=== PATIENT | female | born 1990 | race Caucasian/White ===

== ENCOUNTER 2021-06-18 12:34 | Emergency (ER) | payer OTHER ==
--- OUTSIDE RECORDS SUMMARY | 2021-06-18 12:39 | XMS REPORT | Continuity of Care Document ---
:1990 Author Organization [facility] t Address [address] [place] [address] Care Team Providers Name Role Phone UNKNOWN Primary Care Physician Unavailable Anca PULIDO Attending Clinician Unavailable SUSANA Attending Clinician Unavailable Shravan BEARD Attending Clinician Unavailable NANI FRANKLIN Attending Clinician Unavailable Joleen STUART Attending Clinician Unavailable ANDREINA Attending Clinician Unavailable Maida DRIVER Attending Clinician Unavailable Kirill Bernard Attending Clinician Unavailable Kirill Bernard Attending Clinician Unavailable Attending Clinician Unavailable AURELIO BOBO M.D. Attending Clinician Unavailable Kirill Bernard Admitting Clinician Unavailable AURELIO BOBO M.D. Admitting Clinician Unavailable Payers Payer Name Policy Type Policy Number Effective Date Expiration Date Shravan sousa [facility] [id number] 2011 00:00:00 PLUS Problems This patient has no known problems. Allergies, Adverse Reactions, Alerts Allergy Allergy Status Severity Reaction(s) Onset Inactive Treating Comm ents Source Name Type Date Date Clinician No Known Drug Active [facility] NO KNOWN Drug Active [facility] Medications This patient has no known medications. Vital Signs Vital Name Observation Time Observation Value Comments Source Weight Dosing 2021-03-30 13:17:28 78.00 kg Weight Dosing 2021-03-30 13:16:25 78.00 kg Weight Dosing 2021-03-30 13:16:19 78.00 kg Weight Dosing 2021-03-30 13:16:11 78.00 kg Weight Dosing 2021-03-30 13:16:10 78.00 kg Weight Dosing 2021-03-30 13:15:48 78.00 kg Height/Length Measured 2021-03-30 13:15:45 144.8 cm Weight Dosing 2021-03-30 13:15:45 78.00 kg Height/Length Measured 2021-03-30 13:15:41 144.8 cm Weight Dosing 2021-03-30 13:15:41 78.00 kg Height/Length Measured 2021-03-30 13:15:36 145 cm Height/Length Measured 2021-03-30 13:15:30 145 cm Height/Length Measured 2021-03-30 13:15:26 145 cm Height/Length Measured 2020-01-15 18:09:41 Height/Length Measured 2020-01-15 16:40:52 Height/Length Measured 2020-01-15 14:00:05 Procedures This patient has no known procedures. Encounters Start End Encounter Admission Attending Care Care Encounter Source Date/Time Date/Time Type Type Clinicians Facility Department ID 2021-04-07 2021-04-07 Outpatient R [facility] [id number] Univers 13:00:00 13:00:00 CORNELIO [id number] [facility] 2021-04-07 2021-04-07 Outpatient R [facility] [id number] Univers 13:00:00 13:00:00 CORNELIO [facility] 2021-01-06 2021-01-06 Outpatient R [facility] [id number] Univers 10:00:00 10:00:00 [id number] [facility] 2021-01-06 2021-01-06 Outpatient R [facility] [id number] Univers 10:00:00 10:00:00 CORNELIO [facility] 2020-11-04 2020-11-04 Outpatient R [facility] [id number] Univers 11:00:00 11:00:00 [id number] [facility] 2020-11-04 2020-11-04 Outpatient R [facility] [id number] [facility]:00[facility]00 [facility]00:[address] [facility] 2020-10-22 2020-10-22 Outpatient R [facility] [id number] Univers 16:40:00 16:40:[id number] [facility] 2020-10-222020-10-22 Outpatient R SONG, [facility] [id number] Univers 16:40:00 16:40:00 DANGELO [facility] 2020-10-07 2020-10-07 Outpatient R ADUM, [facility] [id number] Univers 11:00:00 11:00:00 CORNELIO mitzy [facility] 2020-10-07 2020-10-07 Outpatient R [facility] [id number] Univers 10:00:00 10:00:00 [id number] ity [facility] 2020-09-25 2020-09-25 Outpatient R ADUM, [facility] [id number] Univers 10:30:00 10:30:[id number] [facility] [facility] 2020-09-24 2020-09-24 Outpatient R ADUM, [facility] [id number] Univers 15:00:00 15:00:00 CORNELIO [id number] [facility] 2020-09-24 2020-09-24 Outpatient R ADUM, [facility] [id number] Univers 00:00:00 00:00:00 CORNELIO [facility] 2020-09-16 2020-09-16 Outpatient R ADUM, [facility] [id number] Univers 00:00:00 00:00:[id number] [facility] [facility] 2020-09-16 2020-09-16 Outpatient R ADUM, [facility] [id number] Univers 00:00:00 00:00:00 CORNELIO [facility] 2020-09-04 2020-09-04 Outpatient R ADUM, [facility] [id number] Univers 14:30:00 14:30:00 CORNELIO [facility] 2020-05-19 2020-05-19 Emergency X KISHA, [facility] [id number] Univers 00:28:00 00:28:00 ZHENGSMITH [facility] 2020-05-17 2020-05-17 Emergency X Masoud FRANKLIN [facility] ERT [id number] Univers 17:19:00 17:19:00 ity [facility] 2020-05-16 2020-05-16 Emergency X NARCISO, [facility] E[facility] [id number] Univers 16:33:00 16:33:00 FAWN [facility] 2020-05-04 2020-05-04 Emergency X ANDREINA, [facility] ERT [id number] Univers 18:31:00 18:31:00 ALMAS [facility] 2020-05-02 2020-05-02 Emergency X [facility] [id number] Univers 16:08:00 16:08:00 [facility] 2020-04-25 2020-04-25 Emergency X Masoud FRANKLIN [facility] E[facility] [id number] Univers 11:25:00 11:25:00 [facility] 2020-04-04 2020-04-04 Emergency X [facility] ERT [id number] Univers 04:09:00 04:09:00 GWYN [facility] 2020-02-25 2020-02-25 Emergency X [facility] ERT [id number] Univers 18:15:00 18:15:00 GWYN [facility] 2020-01-15 2020-01-15 Inpatient 1 Alex Bernard [facility] [id number] 13:47:00 13:47:00 Alex Bernard [facility] 2020-01-15 2020-01-15 Inpatient 1 Alex Bernard [facility] [id number] 13:47:00 13:47:00 Alex Bernard -[id number] [facility] 2019-10-16 2019-10-16 Emergency X [facility] ERT [id number] Univers 12:10:00 12:10:00 GERSON [facility] Results Test Description Test Time Test Comments Results Result Comments Source RPR Qual 2020-01-16 09:03:37 Test Item Value Reference Range Interpretation Comme nts RPR Qual (test code = RPR Qual) Non-Reactive Non-Reactive Reactive Control (test code = Reactive Control) Reactive Weak Reactive Control (test code = Weak Reactive Weak Reactive Control) Non-Reactive Control (test code = Non-Reactive Non-Reactive Control) Lot # (test code = Lot #) [id number] Expiration Dt (test code = Expiration Dt) 04-12-2021 N [id number] 07:59:08 Test Item Value Reference Range Interpretation Comments Cholesterol Total 153 mg/dL N Low-risk l evel (test code = (desirable) - < 200 Cholesterol Total) mg/dlMode rate-risk level (borderli ne) - 200-239 mg/dlHigh-risk level - ?240 mg/dl Triglycerides (test 87 mg/dL N Normal - <150 code = Triglycerides) mg/dlB orderline high - 150-199 mg/dl High - 200-499 mg/dl Very high - ?500 mg/ dl HDL (test code = HDL) 44.40 mg/dL N Low-ri sk level (desirable) - ? 60 mg/dlHigh-risk level (undesirable) - <40 mg/dl LDL (test code = LDL) 91 mg/dL N The eq uation being used in this calculation is LDL = (Chol - HDL) - (Trig / 5) VLDL (test code = 17 mg/dL 5-40 The equati on being VLDL) used in this calculation is VLDL = Trig / 5 Chol/HDL (test code = 3.4 ratio <=5.0 Chol/HDL) LDL/HDL Ratio (test 3 N The equa tion being code = LDL/HDL Ratio) used i n this calculation is LDL/HDL Ratio=L DL Calc/HDL Chol [id number] 07:59:08 Test Item Value Reference Range Interpretation Comments TSH (test code = TSH) 0.627 mcIU/mL 0.550-4.780 Hgb [id number] 07:58:50 Test Item Value Reference Range Interpretation Comments Hemoglobin A1c (test code 5.1 % 4.0-5.8 Di abetic >=6.5 = Hemoglobin A1c) %Prediabet es 5.7-6.4 %Normal <5.7 % UA [id number] 17:29:48 Test Item Value Reference Range Interpretation Comments UA WBC (test code = UA WBC) 20-29 0-5 A UA RBC (test code = UA RBC) 0-5 0-5 UA Bacteria (test code = UA Moderate A Bacteria) UA Squam Epithelial (test code = UA 0-5 Squam Epithelial) UA [id number] 17:29:48 Test Item Value Reference Range Interpretation Comments UA WBC (test code = UA WBC) 20-29 0-5 A UA RBC (test code = UA RBC) 0-5 0-5 UA Bacteria (test code = UA Moderate A Bacteria) UA Squam Epithelial (test code = UA 0-5 Squam Epithelial) UA Mucous (test code = UA Mucous) Moderate A Urine [id number] 17:21:35 Test Item Value Reference Range Interpretation Comments Amphetamine Screen Ur Negative Negative The sp ecimen is (test code = presumptive pos itive Amphetamine Screen Ur) if th e analyte concentration i s equal to or greater t davison 1000 ng/ml.If confirmation of positive result is desired, please order Amphetamine Confirmation, U rine within 7 days. Barbiturate Screen Ur Negative Negative The sp ecimen is (test code = presumptive pos itive Barbiturate Screen Ur) if th e analyte concentration i s equal to or greater t davison 200 ng/ml.If confir mation of positive res ult is desired, please order Barbiturate Confirmation, U rine within 7 days. Benzodiazepines Ur Negative Negative The speci men is (test code = presumptive pos itive Benzodiazepines Ur) if the a nalyte concentration i s equal to or greater t davison 200 ng/ml.If confir mation of positive res ult is desired, please order Benzodiazephine Confirmation, U rine within 7 days. Cocaine Screen Ur (test Negative Negative The specimen is code = Cocaine Screen presum ptive positive Ur) if the analyte concentration i s equal to or greater t davison 300 ng/ml.If confir mation of positive res ult is desired, please order Cocaine Metabol ite Confirmation, U rine within 7 days. Opiate Screen Ur (test Negative Negative The s pecimen is code = Opiate Screen presump tive positive Ur) if the analyte concentration i s equal to or greater t davison 2000 ng/ml.If confirmation of positive result is desired, please order Opiate Confirm ation, Urine within 7 days. U PCP Scrn (test code = Negative Negative The specimen is U PCP Scrn) presumptive pos itive if the analyte concentration i s equal to or greater t davison 25 ng/ml.If confir mation of positive res ult is desired, please order Phencyclidine Confirmation, U rine within 7 days. Cannabinoid Screen Ur Negative Negative The sp ecimen is (test code = presumptive pos itive Cannabinoid Screen Ur) if th e analyte concentration i s equal to or greater t davison 50 ng/ml.If confir mation of positive res ult is desired, please order Cannabinoid (TH C) Confirmation, U rine within 7 days. U Methadone Scr (test Negative Negative The sp ecimen is code = U Methadone Scr) pres umptive positive if the analyte concentration i s equal to or greater t davison 300 ng/ml.If confir mation of positive res ult is desired, please order Methadone Confirmation, U rine within 7 days. U Propoxyphene (test Negative Negative The spe cimen is code = U Propoxyphene) presu mptive positive if the analyte concentration i s equal to or greater t davison 300 ng/ml.If confir mation of positive res ult is desired, please order Propoxyphene Confirmation wi thin 7 days. UA w Culture if [id number] 17:00:08 Test Item Value Reference Range Interpretation Comments UA Color (test code = UA Color) YELLO Yellow UA Appear (test code = UA Appear) CLEAR Clear UA pH (test code = UA pH) 8.5 N UA Spec Grav (test code = UA Spec 1.020 1.001-1.035 Grav) UA Glucose (test code = UA NEG Negative Glucose) UA Bili (test code = UA Bili) NEG Negative UA Ketones (test code = UA 15 mg/dL N Ketones) UA Blood (test code = UA Blood) TR Negative A UA Protein (test code = UA Trace mg/dL N Protein) UA Urobilinogen (test code = UA 1 mg/dL >0.2 A Urobilinogen) UA Nitrite (test code = UA NEG Negative Nitrite) UA Leuk Est (test code = UA Leuk SML Negative A Est) UA Micro Ind? (test code = UA Indicated Not Indicated A Micro Ind?) Novel Coronavirus SARS-CoV-2, [id number] 15:51:59 Test Item Value Reference Range Interpretation Comments SARS-CoV-2 PCR NEGATIVE Negative Positive resu lts are (test code = indicative of a ctive SARS-CoV-2 PCR) infection wi SARS-CoV-2; clinical correl ation with patient history and other diagnostic info rmation is necessary to de termine patient infecti on status.Presumpt evaristo positive result s -INTERPRET WITH CAUTION: Resul t may not reflect if nick ent is actually positi ve. Patient should be treat ed based on clinical suspic ions. Negative result s do not preclude SARS-C oV-2 infection and s hould not be used as the sole basis for treatment o r other patient managem ent decisions. Nega tive results must be combined with clinical observations, p atient history, and epidemiological information.The Xpert Xpress SARS-CoV -2 test is only for use un erma the Food and Drug Administration s Emergency Use Authorization." [id number] 15:11:36 Test Item Value Reference Range Interpretation Comments Sodium Level (test code = Sodium 140.0 mmol/L 136.0-145.0 Level) Potassium Level (test code = 4.20 mmol/L 3.50-5.10 Potassium Level) Chloride Level (test code = 107.0 mmol/L 98.0-107.0 Chloride Level) CO2 (test code = CO2) 25 mmol/L 20-31 Anion Gap (test code = Anion 8.3 mmol/L 5.0-15.0 Gap) BUN (test code = BUN) 9 mg/dL 9-23 Creatinine Level (test code = 0.70 mg/dL 0.55-1.02 Creatinine Level) BUN/Creat Ratio (test code = 12.9 ratio 10.0-20.0 BUN/Creat Ratio) Glucose Level (test code = 128 mg/dL 74-106 H Glucose Level) Calcium Level (test code = 9.3 mg/dL 8.3-10.6 Calcium Level) Alk Phos (test code = Alk Phos) 120 U/L 46-116 H Bilirubin Total (test code = 0.2 mg/dL 0.2-1.1 Bilirubin Total) Albumin Level (test code = 4.5 g/dL 3.2-4.8 Albumin Level) Protein Total (test code = 6.4 g/dL 5.7-8.2 Protein Total) ALT (test code = ALT) 48 U/L 10-49 AST (test code = AST) 20 U/L <=34 Globulin (test code = Globulin) 1.9 g/dL 2.3-3.5 L A/G Ratio (test code = A/G 2.4 g/dL 0.8-2.0 H Ratio) Hemolysis (test code = 0 g/dL 1-2 H Hemolysis) Icterus (test code = Icterus) 0 g/dL 1-2 H Lipemia (test code = Lipemia) 0 g/dL 1-2 H [id number] 15:11:36 Test Item Value Reference Range Interpretation Comments Ethanol Level <3.0 mg/dL N The pharmacolo gical (test code = response to blo od alcohol Ethanol Level) levels may va ry from individual to i ndividual. The fatal chivo ntration has been report ed to be >400 mg/dl. [id number] 15:11:36 Test Item Value Reference Range Interpretation Comments Sodium Level (test 140.0 mmol/L 136.0-145.0 code = Sodium Level) Potassium Level 4.20 mmol/L 3.50-5.10 (test code = Potassium Level) Chloride Level (test 107.0 mmol/L 98.0-107.0 code = Chloride Level) CO2 (test code = 25 mmol/L 20-31 CO2) Anion Gap (test code 8.3 mmol/L 5.0-15.0 = Anion Gap) BUN (test code = 9 mg/dL 9-23 BUN) Creatinine Level 0.70 mg/dL 0.55-1.02 (test code = Creatinine Level) BUN/Creat Ratio 12.9 ratio 10.0-20.0 (test code = BUN/Creat Ratio) Glucose Level (test 128 mg/dL 74-106 H code = Glucose Level) Calcium Level (test 9.3 mg/dL 8.3-10.6 code = Calcium Level) Alk Phos (test code 120 U/L 46-116 H = Alk Phos) Bilirubin Total 0.2 mg/dL 0.2-1.1 (test code = Bilirubin Total) Albumin Level (test 4.5 g/dL 3.2-4.8 code = Albumin Level) Protein Total (test 6.4 g/dL 5.7-8.2 code = Protein Total) ALT (test code = 48 U/L 10-49 ALT) AST (test code = 20 U/L <=34 AST) Globulin (test code 1.9 g/dL 2.3-3.5 L = Globulin) A/G Ratio (test code 2.4 g/dL 0.8-2.0 H = A/G Ratio) eGFR AA (test code = >60 >=60 eGFR (e stimated eGFR AA) mL/min/1.73 m2 Glomerular Filtration Rate ) is an estimated va lue, calculated from the patient's serum creatinine usin g the MDRD equation. It is NOT the patient 's actual GFR. The eGFR provides a more clinically usef ul measure of kidn ey disease than se rum creatinine alone.This calculation aiden es sex and race in to account, if the information is provided. If th e race is not provided, and t he patient is -Francesca n, multiply by 1.2 12. If sex is not provided, and t he patient is fema le, multiply by 0.7 42. Results for pat ients <18 years of ag e have not been validated by th e MDRD study and should be interpreted wit h caution. eGFR R esult Interpretation: eGFR > or = 60 is in the Normal RangeeGF R < 60 may mean kid lorie diseaseeGFR < 1 5 may mean kidney failure Rang es recommended by the National Kidney Foundation, http://nkdep.ni h.gov Hemolysis (test code 0 g/dL 1-2 H = Hemolysis) Icterus (test code = 0 g/dL 1-2 H Icterus) Lipemia (test code = 0 g/dL 1-2 H Lipemia) HCG Ql [id number] 15:11:36 Test Item Value Reference Range Interpretation Comments HCG, Serum Qual (test code = HCG, Negative Negative Serum Qual) [id number] 15:11:36 Test Item Value Reference Range Interpretation Comments Sodium Level (test 140.0 mmol/L 136.0-145.0 code = Sodium Level) Potassium Level 4.20 mmol/L 3.50-5.10 (test code = Potassium Level) Chloride Level (test 107.0 mmol/L 98.0-107.0 code = Chloride Level) CO2 (test code = 25 mmol/L 20-31 CO2) Anion Gap (test code 8.3 mmol/L 5.0-15.0 = Anion Gap) BUN (test code = 9 mg/dL 9-23 BUN) Creatinine Level 0.70 mg/dL 0.55-1.02 (test code = Creatinine Level) BUN/Creat Ratio 12.9 ratio 10.0-20.0 (test code = BUN/Creat Ratio) Glucose Level (test 128 mg/dL 74-106 H code = Glucose Level) Calcium Level (test 9.3 mg/dL 8.3-10.6 code = Calcium Level) Alk Phos (test code 120 U/L 46-116 H = Alk Phos) Bilirubin Total 0.2 mg/dL 0.2-1.1 (test code = Bilirubin Total) Albumin Level (test 4.5 g/dL 3.2-4.8 code = Albumin Level) Protein Total (test 6.4 g/dL 5.7-8.2 code = Protein Total) ALT (test code = 48 U/L 10-49 ALT) AST (test code = 20 U/L <=34 AST) Globulin (test code 1.9 g/dL 2.3-3.5 L = Globulin) A/G Ratio (test code 2.4 g/dL 0.8-2.0 H = A/G Ratio) eGFR AA (test code = >60 >=60 eGFR (e stimated eGFR AA) mL/min/1.73 m2 Glomerular Filtration Rate ) is an estimated va lue, calculated from the patient's serum creatinine usin g the MDRD equation. It is NOT the patient 's actual GFR. The eGFR provides a more clinically usef ul measure of kidn ey disease than se rum creatinine alone.This calculation aiden es sex and race in to account, if the information is provided. If th e race is not provided, and t he patient is -Francesca n, multiply by 1.2 12. If sex is not provided, and t he patient is fema le, multiply by 0.7 42. Results for pat ients <18 years of ag e have not been validated by th e MDRD study and should be interpreted wit h caution. eGFR R esult Interpretation: eGFR > or = 60 is in the Normal RangeeGF R < 60 may mean kid lorie diseaseeGFR < 1 5 may mean kidney failure Rang es recommended by the National Kidney Foundation, http://nkdep.ni h.gov eGFR Non-AA (test >60.00 >=60.00 eGFR (tarun mated code = eGFR Non-AA) mL/min/1.73 m2 Glomer ular Filtration Rate ) is an estimated va lue, calculated from the patient's serum creatinine usin g the MDRD equation. It is NOT the patient 's actual GFR. The eGFR provides a more clinically usef ul measure of kidn ey disease than se rum creatinine alone.This calculation aiden es sex and race in to account, if the information is provided. If th e race is not provided, and t he patient is -Francesca n, multiply by 1.2 12. If sex is not provided, and t he patient is fema le, multiply by 0.7 42. Results for pat ients <18 years of ag e have not been validated by th e MDRD study and should be interpreted wit h caution. eGFR R esult Interpretation: eGFR > or = 60 is in the Normal RangeeGF R < 60 may mean kid lorie diseaseeGFR < 1 5 may mean kidney failure Rang es recommended by the National Kidney Foundation, http://nkdep.ni h.gov Hemolysis (test code 0 g/dL 1-2 H = Hemolysis) Icterus (test code = 0 g/dL 1-2 H Icterus) Lipemia (test code = 0 g/dL 1-2 H Lipemia) [id number] 14:58:46 Test Item Value Reference Range Interpretation Comments WBC (test code = WBC) 8.2 x10 4.4-10.5 RBC (test code = RBC) 4.53 x10 3.75-5.20 Hgb (test code = Hgb) 12.3 g/dL 12.2-14.8 Hct (test code = Hct) 40.1 % 36.5-44.4 MCV (test code = MCV) 88.50 fL 80.00-100.00 MCHC (test code = 30.70 g/dL 32.00-37.50 L MCHC) MCH (test code = MCH) 27.2 pg 27.0-32.5 RDW CV (test code = 14.9 % 11.5-14.5 H RDW CV) Platelets (test code = 344.0 x10 140.0-440.0 Platelets) MPV (test code = MPV) 9.3 fL N Slide Review (test Auto Auto Result cr eated by code = Slide Review) GL_[id number] SLIDE_REV_AUTO nRBC (test code = 0 N nRBC) NRBC Abs (test code = 0.00 x10 N NRBC Abs) Auto [id number] 14:58:46 Test Item Value Reference Range Interpretation Comments Neutro Auto (test code = Neutro 55.7 % 36.0-70.0 Auto) Lymph Auto (test code = Lymph Auto) 38.5 % 12.0-44.0 [place] Auto (test code = [place] Auto) 4.7 % 0.0-11.0 Eos, Auto (test code = Eos, Auto) 0.4 % 0.0-7.0 Basophil Auto (test code = Basophil 0.5 % 0.0-2.0 Auto) Neutro Absolute (test code = Neutro 4.6 x10 1.6-7.4 Absolute) Lymph Absolute (test code = Lymph 3.17 x10 .50-4.60 Absolute) [place] Absolute (test code = [place] .39 x10 .00-1.20 Absolute) Eos Absolute (test code = Eos 0.03 x10 0.00-0.74 Absolute) Baso Absolute (test code = Baso 0.04 x10 0.00-0.21 Absolute) IG [id number] 14:58:46 Test Item Value Reference Range Interpretation Comments IG (test code = IG) 0.2 % 0.0-5.0 IG Abs (test code = IG Abs) 0 x10 N RPR, [id number] 04:44:00 Test Item Value Reference Range Interpretation Comments RPR (test code = RPR) Non-Reactive Non-Reactive N Urinalysis [id number] 14:36:00 Test Item Value Reference Range Interpretation Comments Color (test code = COLOR) Yellow Yellow,Straw,Pl N yellow Clarity (test code = Clear Clear N CLAR) Specific [place] (test 1.012 1.001-1.035 N code = SPGR) pH (test code = PH) 8.0 5.0-9.0 N Ketone (test code = KET) Negative mg/dL Negative N Glucose (test code = Negative mg/dL Negative N GLUCUR) Protein (test code = Negative mg/dL Negative N PROT) Bilirubin (test code = Negative mg/dL Negative N BILI) Occult Blood (test code = Negative Negative N UDOB) Urobilinogen (test code = 0.2 mg/dL 0.2-1.0 N UROB) Nitrite (test code = NIT) Negative Negative N Leuk Esterase (test code Moderate Negative A = LEUK) Micros Exam (test code = Indicated MEXAM) Epithelial Cells (test 6-9 /LPF 0-30 A code = EPI) WBC, Urine (test code = 2-5 /HPF 0-5 A UWBC) RBC, Urine (test code = 0-3 /HPF 0-5 A URBC) Bacteria (test code = Few /HPF BACT) [id number] 13:50:00 Test Item Value Reference Range Interpretation Comments Amphetamine (test code Negative Negative N For d iagnostic purposes = AMPH) only, positive results should always b e assessedin conjunctionwith the patient's medic al history,clinica l examination and otherfindings.T o fulfill legal requirements, a more specific altern ate chemical method must be used inorder to obtain a Confirmed fabio lytical result. GC/MS i s the preferred confi rmatory method. Barbiturates (test Negative Negative N code = EDEL) Benzodiazepine (test Negative Negative N code = LISBETH) Cocaine (test code = Negative Negative N COCA) Methadone (test code = Negative Negative N MTHD) Opiates (test code = Negative Negative N OPIA) PCP (test code = PCP) Negative Negative N Propoxyphene (test Negative Negative N code = PROPOX) THC (test code = THC) Negative Negative N BHCG, Urine, [id number] 12:04:00 Test Item Value Reference Range Interpretation Comments Preg Qual [Ur] (test code = HUHCG) Negative Negative N Alcohol/Ethanol, [id number] 12:04:00 Test Item Value Reference Range Interpretation Comments Alcohol, Ethyl <0.01 g/dL 0.00-0.01 N Intoxicated 0.080 (test code = ETOH) g/dL or m ore Comprehensive Metabolic [id number] 12:04:00 Test Item Value Reference Range Interpretation Comments Sodium (test code = 138 mmol/L 135-145 N NA) Potassium (test 4.2 mmol/L 3.5-5.1 N code = K) Chloride (test code 100 mmol/L 98-105 N = CL) Carbon Dioxide 27 mmol/L 22-29 N (test code = CO2) Glucose (test code 115 mg/dL 70-115 N = GLU) Blood Urea Nitrogen 7 mg/dL 6-20 N (test code = BUN) Creatinine (test 0.5 mg/dL 0.5-0.9 N code = CREAT) Calcium (test code 9.3 mg/dL 8.3-10.5 N = CA) Prot Total (test 7.1 g/dL 6.4-8.3 N code = TP) Albumin (test code 4.1 g/dL 3.5-5.2 N = ALB) A/G Ratio (test 1.4 Ratio code = AGRATIO) Globulin (test code 3.0 2.9-3.1 N = GLOB) Bili Total (test <0.1 mg/dL 0.1-0.9 L code = TBIL) Alk Phos (test code 98 U/L 35-104 N = APHOS) AST (test code = 13 U/L 1-32 N AST) ALT (test code = 13 U/L 1-33 N ALT) BUN/Creatinine 14.0 Ratio (test code = BCRATIO) Anion Gap (test 11 mmol/L 7-16 N code = AGAP) Estimated GFR (test >60 eGFR (es timated code = GFR) mL/min/1.73m2 Glomerular Scott tration Rate) is an est imated value,calculate d from the patient's s margaret creatinine usin g the MDRD equation.I t is NOT the patient 's actual GFR. The eGFR provides a more clinicallyusefu l measure of kidn ey disease than se rum creatinine alone.This calculation aiden es sex and race into account, if the informationis provided. If th e race is not provided , and the patient isAfrican-Ameri can, multiply by 1.2 12. If sex is not prov ided, and thepatient is female, multipl y by 0.742. Results for patients <18 ye ars ofage have not been validated by th e MDRD study and marco d be interpretedwith caution.eGFR Re sult Interpretation: eGFR > or = 60 is in t he Normal RangeeGF R < 60 may mean kidney diseaseeGFR < 1 5 may mean kidney failureRange s recommended by the National Kidney Foundation,http ://nkd ep.nih.gov CBC with [id number] 11:37:00 Test Item Value Reference Range Interpretation Comments WBC (test code = WBC) 7.6 K/cumm 4.4-10.5 N RBC (test code = RBC) 4.43 M/cumm 3.75-5.20 N Hemoglobin (test code = HGB) 12.4 gm/dL 12.2-14.8 N Hematocrit (test code = HCT) 36.7 % 36.5-44.4 N MCV (test code = MCV) 83.0 fL 80-100 N MCH (test code = MCH) 28.1 pg 27.0-32.5 N MCHC (test code = MCHC) 33.8 g/dL 32.0-37.5 N RDW (test code = RDW) 13.2 % 11.5-14.5 N Platelet Count (test code = 275 K/cumm 140-440 N PLTCT) MPV (test code = MPV) 9.5 fL Diff Method (test code = DIFFM) Auto Neutrophil (test code = NEUT) 65.8 % 36-70 N Lymphocyte (test code = LYMPH) 30.0 % 12-44 N Monocyte (test code = MONO) 3.1 % 0-11 N Eosinophil (test code = EOS) 0.7 % 0-7 N Basophil (test code = BASO) 0.3 % 0-2 N Neutro Abs (test code = ANEUT) 5.0 K/cumm 1.6-7.4 N Lymph Abs (test code = ALYMPH) 2.3 K/cumm 0.5-4.6 N [place] Abs (test code = AMONO) 0.2 K/cumm 0.0-1.2 N Eos Abs (test code = AEOS) 0.05 K/cumm 0.00-0.74 N Baso Abs (test code = ABASO) 0.0 K/cumm 0.00-0.21 N
[2021-06-18 14:31] LABS: SARS-COV-2 RT PCR NEGATIVE (NEGATIVE)
--- NOTE | 2021-06-18 14:38 | EDPHYS ---
Physician Documentation [facility] Name: Bonnie Hilton Age: 31 yrs Sex: Female : 1990 Arrival Date: 06/18/2021 Time: 12:40 Bed Treatment Private MD: ED Physician Vj Paniagua HPI: 06/18 14:36 This 31 yrs old Female presents to ER via Ambulatory with complaints of Sinus kb Congestion, Sore Throat. 14:36 The patient or guardian reports cough, that is intermittent, described as mild. Onset: kb The symptoms/episode began/occurred 5 day(s) ago. Severity of symptoms: At their worst the symptoms were mild, moderate, in the emergency department the symptoms are unchanged. Modifying factors: The symptoms are alleviated by nothing, the symptoms are aggravated by nothing. Associated signs and symptoms: Pertinent positives: rhinorrhea, sore throat, Pertinent negatives: chest pain, diarrhea, ear ache, fever, nausea, vomiting. The patient has not experienced similar symptoms in the past. The patient has not recently seen a physician. Pt reports cough, sore throat and runny nose for 5 days. Denies fever/chills. Historical: - Allergies: 12:54 No Known Allergies; ab2 - PMHx: 12:54 None; ab2 - PSHx: 12:54 None; ab2 - Immunization history:: Adult Immunizations up to date. - Social history:: Smoking status: Patient reports the use of cigarette tobacco products, smokes one pack cigarettes per day. ROS: 14:35 Constitutional: Negative for fever, chills, and weight loss. kb 14:35 ENT: Positive for rhinorrhea, sinus pain. 14:35 Respiratory: Positive for cough. 14:35 All other systems are negative. Exam: 14:35 Constitutional: This is a well developed, well nourished patient who is awake, alert, kb and in no acute distress. Head/Face: Normocephalic, atraumatic. ENT: Moist Mucous membranes Cardiovascular: Regular rate and rhythm with a normal S1 and S2. No gallops, murmurs, or rubs. No pulse deficits. Respiratory: Respirations even and unlabored. No increased work of breathing. Talking in full sentences Abdomen/GI: Soft, non-tender. No distention Skin: Warm, dry with normal turgor. Normal color. MS/ Extremity: Pulses equal, no cyanosis. Neurovascular intact. Full, normal range of motion. Neuro: Awake and alert, GCS 15, oriented to person, place, time, and situation. Moves all extremities. Normal gait. Psych: Awake, alert, with orientation to person, place and time. Behavior, mood, and affect are within normal limits. Vital Signs: 12:53 BP 111 / 81; Pulse 116; Resp 17; Temp 99.1; Pulse Ox 96% on R/A; Weight 90.72 kg; ab2 Height 4 ft. 9 in. (144.78 cm); Pain 0/10; 12:53 Body Mass Index 43.28 (90.72 kg, 144.78 cm) ab2 MDM: 12:57 Patient medically screened. kb 14:34 Data reviewed: vital signs, nurses notes. Data interpreted: Pulse oximetry: on room air kb is 96 %. Interpretation: normal. Counseling: I had a detailed discussion with the patient and/or guardian regarding: the historical points, exam findings, and any diagnostic results supporting the discharge/admit diagnosis, lab results, the need for outpatient follow up, a family practitioner, to return to the emergency department if symptoms worsen or persist or if there are any questions or concerns that arise at home. 06/18 12:58 Order name: COVID-19/FLU A+B (Document "Date of Onset" if Symptomatic); Complete Time: ab2 14:34 06/18 12:58 Order name: Strep; Complete Time: 13:23 ab2 06/18 13:21 Order name: Throat Culture EDMS Administered Medications: No medications were administered Disposition Summary: 06/18/21 14:37 Discharge Ordered Location: Home kb Condition: Stable kb Diagnosis - Acute upper respiratory infection, unspecified kb Followup: kb - With: Emergency Department - When: As needed - Reason: Worsening of condition Followup: kb - With: Private Physician - When: 2 - 3 days - Reason: Recheck today's complaints, Continuance of care, Re-evaluation by your physician Discharge Instructions: - Discharge Summary Sheet kb - Upper Respiratory Infection, Adult, [id number] kb - Viral Respiratory Infection, [id number]-Oa-Duhl kb Forms: - Medication Reconciliation Form kb - Thank You Letter kb - Antibiotic Education kb - Prescription Opioid Use kb Addendum: 06/24/2021 18:48 Co-signature as Attending Physician, Vj Paniagua MD I agree with the assessment and c merlos plan of care. Signatures: Dispatcher [employer] Camila Parsons, TOOL GRINDER OPERATOR-C TOOL GRINDER OPERATOR-Vj Daniels MD MD cha Bleininger, Alexis ab2
--- NOTE | 2021-06-18 14:38 | ER ---
Nurse's Notes [facility] Name: Bonnie Hilton Age: 31 yrs Sex: Female : 1990 Arrival Date: 06/18/2021 Time: 12:40 Bed Treatment Private MD: Diagnosis: Acute upper respiratory infection, unspecified Presentation: 06/18 12:53 Chief complaint: Patient states: "I have a head cold. I have sore throat, runny nose, ab2 cough that started 5 days ago." Pt denies fever/ chills. Pt denies n/v/d. Coronavirus screen: Vaccine status: Patient reports receiving the 2nd dose of the covid vaccine. Client denies travel out of the [place] in the last 14 days. chills, cough unrelated to allergies, runny nose, sore throat, Client presents with at least one sign or symptom that may indicate coronavirus-19. Standard/surgical mask placed on the client. Provider contacted for isolation considerations. Ebola Screen: Patient negative for fever greater than or equal to 101.5 degrees Fahrenheit, and additional compatible Ebola Virus Disease symptoms Patient denies exposure to infectious person. Patient denies travel to an Ebola-affected area in the 21 days before illness onset. No symptoms or risks identified at this time. Initial Sepsis Screen: Does the patient meet any 2 criteria? HR > 90 bpm. No. Patient's initial sepsis screen is negative. Does the patient have a suspected source of infection? No. Patient's initial sepsis screen is negative. Risk Assessment: Do you want to hurt yourself or someone else? Patient reports no desire to harm self or others. Onset of symptoms is unknown. 12:53 Method Of Arrival: Ambulatory ab2 12:53 Acuity: ADELE 4 ab2 Triage Assessment: 12:55 General: Appears in no apparent distress. comfortable, Behavior is calm, cooperative, ab2 appropriate for age. Pain: Denies pain. EENT: Reports pain when swallowing. Neuro: Level of Consciousness is awake, alert, obeys commands, Oriented to person, place, time, situation, Appropriate for age Forestry Crew Chief are equal bilaterally Moves all extremities. Gait is steady, Speech is normal, Facial symmetry appears normal. Cardiovascular: Denies chest pain, shortness of breath, Patient's skin is warm and dry. Respiratory: Airway is patent Respiratory effort is even, unlabored, Respiratory pattern is regular, symmetrical. GI: No deficits noted. No signs and/or symptoms were reported involving the gastrointestinal system. Historical: - Allergies: 12:54 No Known Allergies; ab2 - PMHx: 12:54 None; ab2 - PSHx: 12:54 None; ab2 - Immunization history:: Adult Immunizations up to date. - Social history:: Smoking status: Patient reports the use of cigarette tobacco products, smokes one pack cigarettes per day. Screenin:24 Abuse screen: Denies threats or abuse. Denies injuries from another. Nutritional ab2 screening: No deficits noted. Tuberculosis screening: No symptoms or risk factors identified. Fall Risk None identified. Assessment: 14:23 General: Appears in no apparent distress. comfortable, Behavior is calm, cooperative, ab2 appropriate for age. Pain: Denies pain. Neuro: Level of Consciousness is awake, alert, obeys commands, Oriented to person, place, time, situation, Appropriate for age Forestry Crew Chief are equal bilaterally Moves all extremities. Gait is steady, Speech is normal, Facial symmetry appears normal. Cardiovascular: No deficits noted. Denies chest pain, shortness of breath, Patient's skin is warm and dry. Respiratory: Airway is patent Respiratory effort is even, unlabored, Respiratory pattern is regular, symmetrical, Breath sounds are clear bilaterally. GI: No deficits noted. No signs and/or symptoms were reported involving the gastrointestinal system. : No deficits noted. No signs and/or symptoms were reported regarding the genitourinary system. EENT: Throat is reddened Reports pain when swallowing. Derm: No deficits noted. Skin is intact, is healthy with good turgor, Skin is pink, warm \\T\\ dry. Vital Signs: 12:53 BP 111 / 81; Pulse 116; Resp 17; Temp 99.1; Pulse Ox 96% on R/A; Weight 90.72 kg; ab2 Height 4 ft. 9 in. (144.78 cm); Pain 0/10; 12:53 Body Mass Index 43.28 (90.72 kg, 144.78 cm) ab2 ED Course: 12:40 Patient arrived in ED. mr 12:42 Camila Sinclair FNP-C [facility] kb 12:42 Vj Paniagua MD is Attending Physician. kb 12:54 Triage completed. ab2 12:55 Arm band placed on left wrist. ab2 14:24 Patient has correct armband on for positive identification. Bed in low position. Call ab2 light in reach. Side rails up X2. 14:24 No provider procedures requiring assistance completed. ab2 15:01 Enriqueta Pollock, RN is Primary Nurse. ss 15:01 Patient did not have IV access during this emergency room visit. ss Administered Medications: No medications were administered Outcome: 14:37 Discharge ordered by MD. kb 15:01 Discharged to home ambulatory. ss 15:01 Condition: good 15:01 Discharge instructions given to patient, family, Instructed on discharge instructions, follow up and referral plans. Demonstrated understanding of instructions, follow-up care. 15:02 Patient left the ED. Signatures: Camila Sinclair, DEVELOPMENTAL ELECTRONICS ASSEMBLER-C DEVELOPMENTAL ELECTRONICS ASSEMBLER-Carmen Valles mr Enriqueta Pollock, RN RN Kehinde Guzman ab2
[2021-06-18 17:13] VITALS: BP 111/81; TEMP 99.1; O2SAT 96
== END 2021-06-18 15:02 | disposition home or self-care (01) ==
LOC: ER 12:34
DX: J06.9 Acute upper respiratory infection, unspecified (principal); Z20.822 Contact with and (suspected) exposure to COVID-19; F17.210 Nicotine dependence, cigarettes, uncomplicated
CPT/HCPCS: 87070; 87081; 0240U; 99281

== ENCOUNTER 2021-08-12 22:16 | Emergency (ER) | payer OTHER ==
--- OUTSIDE RECORDS SUMMARY | 2021-08-12 22:19 | XMS REPORT | Continuity of Care Document ---
:1990 Author Organization [facility] t Address [address] [place] [address] Care Team Providers Name Role Phone UNKNOWN Primary Care Physician Unavailable Anca PULIDO Attending Clinician Unavailable SUSANA Attending Clinician Unavailable Shravan BEARD Attending Clinician Unavailable NANI FRANKLIN Attending Clinician Unavailable Joleen STUART Attending Clinician Unavailable ANDREINA Attending Clinician Unavailable Maida DRIVER Attending Clinician Unavailable Kirill Bernard Attending Clinician Unavailable Kirill Bernard Attending Clinician Unavailable Ann Marie TRAORE Attending Clinician Unavailable Attending Clinician Unavailable AURELIO BOBO M.D. Attending Clinician Unavailable Kirill Bernard Admitting Clinician Unavailable AURELIO BOBO M.D. Admitting Clinician Unavailable Payers Payer Name Policy Type Policy Number Effective Date Expiration Date S merry [facility] [id number] 2011 00:00:00 PLUS Problems This patient has no known problems. Allergies, Adverse Reactions, Alerts Allergy Allergy Status Severity Reaction(s) Onset Inactive Treating Comm ents Source Name Type Date Date Clinician No Known Drug Active [facility] NO KNOWN Drug Active [facility] [...] Facility Department ID 2021-04-07 2021-04-07 Outpatient R [facility] [id number] Univers 13:00:00 13:00:00 [facility] [id number] 2021-04-07 Outpatient R [facility] [id number] Univers 13:00:00 13:00:00 CORNELIO [facility] 2021-01-06 2021-01-06 Outpatient [facility] [id number] [facility] 10:00:00 10:00:00 [id number] ity [facility] 2021-01-06 2021-01-06 Outpatient R [facility] [id number] Univers 10:00:00 10:00:00 CORNELIO [facility] 2020-11-04 2020-11-04 Outpatient R [facility] [id number] [facility] 11:00:00 11:00:00 [id number] [facility]-11-[facility] 2020-11-04 Outpatient R [facility] [id number] [facility] 11:00[facility]-10[facility] 2020-10-22 Outpatient R [facility] [id number] [facility] 16:40:00 16:40:00 [id number] ity [facility] 2020-10-22 2020-10-22 Outpatient R SONG, [facility] [id number] [facility] 16:40:00 16:40:00 DANGELO ity [facility] 2020-10-07 2020-10-07 Outpatient R ADUM, [facility] [id number] [facility] 11:00:00 11:00:00 CORNELIO itmitzy [facility] 2020-10-07 2020-10-07 Outpatient R [facility] [id number] [facility] 10:00:00 10:00:00 [id number] ity [facility] 2020-09-25 2020-09-25 Outpatient R ADUM, [facility] [id number] [facility] 10:30:00 10:30:00 CORNELIO [id number] ity [facility] 2020-09-24 2020-09-24 Outpatient R ADUM, [facility] [id number] [facility] 15:00:00 15:00:00 [facility] [id number] [facility] 2020-09-[facility] 2020-09-24 Outpatient R ADUM, [facility] [id number] [facility] 00:00:00 00:00:00 [facility] 2020-09-16 Outpatient R ADUM, [facility] [id number] [facility] 00:00:00 00:00:00 [facility] [id number] [facility] 2020-09-16 2020-09-16 Outpatient R ADUM, [facility] [id number] Univers 00:00:00 00:00:00 CORNELIO itmitzy [facility] 2020-09-04 2020-09-04 Outpatient R ADUM, [facility] [id number] Univers 14:30:00 14:30:00 CORNELIO [facility] 2020-05-19 2020-05-19 Emergency X KISHA, [facility] ERT [id number] Univers 00:28:00 00:28:00 Z[facility]ELISSA [facility] 2020-05-17 2020-05-17 Emergency X Masoud FRANKLIN [facility] ERT [id number] Univers 17:19:00 17:19:00 [facility] 2020-05-16 2020-05-16 Emergency X NARCISO [facility] ERT [id number] Univers 16:33:00 16:33:00 FAWN [facility] 2020-05-04 2020-05-04 Emergency X ANDREINA, [facility] ERT [id number] Univers 18:31:00 18:31:00 ALMAS [facility] 2020-05-02 2020-05-02 Emergency X [facility] ERT [id number] Univers 16:08:00 16:08:00 [facility] 2020-04-25 2020-04-25 Emergency X Masoud FRANKLIN [facility] ERT [id number] Univers 11:25:00 11:25:00 [facility] 2020-04-04 2020-04-04 [facility] [id number] Univers 04:09:00 04:09:00 GWYN [facility] 2020-02-25 2020-02-25 [facility] [id number] Univers 18:15:00 18:15:00 GWYN [facility] 2020-01-15 2020-01-15 In[address] [facility] PSY [id number] 13:47:00 13:47:00 Alex Bernard [facility] 2020-01-15 2020-01-15 Inpatient [address] [facility] PS[facility] [id number] 13:47:00 13:47:00 Alex Bernard -[id number] [facility] 2020-01-15 2020-01-15 Outpatient R LEÓN, [facility] NUT [id number] Univers 00:00:00 00:00:00 ALBERTO [facility] 2019-10-16 2019-10-16 Emergency X [facility] ERT [id number] Univers 12:10:00 12:10:00 GERSON [facility] Results Test Description Test Time Test Comments [...] (test code = Expiration Dt) 04-12-2021 N [id number] 07:59:08 Test Item Value Reference Range Interpretation [...] calculation is LDL/HDL Ratio=L DL Calc/HDL Chol [id number] 07:59:08 Test Item Value Reference Range Interpretation Comments TSH (test code = TSH) 0.627 mcIU/mL 0.550-4.780 Hgb [id number] 07:58:50 Test Item Value Reference Range Interpretation Comments Hemoglobin A1c (test code 5.1 % 4.0-5.8 Di abetic >=6.5 = Hemoglobin A1c) %Prediabet es 5.7-6.4 %Normal <5.7 % UA [id number] 17:29:48 Test Item Value Reference Range Interpretation Comments UA WBC (test code = UA WBC) 20-29 0-5 A UA RBC (test code = UA RBC) 0-5 0-5 UA Bacteria (test code = UA Moderate A Bacteria) UA Squam Epithelial (test code = UA 0-5 Squam Epithelial) UA [id number] 17:29:48 Test Item Value Reference Range Interpretation Comments UA WBC (test code = UA WBC) 20-29 0-5 A UA RBC (test code = UA RBC) 0-5 0-5 UA Bacteria (test code = UA Moderate A Bacteria) UA Squam Epithelial (test code = UA 0-5 Squam Epithelial) UA Mucous (test code = UA Mucous) Moderate A Urine [id number] 17:21:35 Test Item Value Reference Range Interpretation [...] thin 7 days. UA w Culture if [id number] 17:00:08 Test Item Value Reference Range Interpretation [...] Indicated A Micro Ind?) Novel Coronavirus SARS-CoV-2, [id number] 15:51:59 Test Item Value Reference Range Interpretation Comments SARS-CoV-2 PCR NEGATIVE Negative Positive resu lts are (test code = indicative of a ctive SARS-CoV-2 PCR) infection wi th SARS-CoV-2; clinical correl ation with patient history [...] and Drug Administration s Emergency Use Authorization." [id number] 15:11:36 Test Item Value Reference Range Interpretation [...] code = Lipemia) 0 g/dL 1-2 H [id number] 15:11:36 Test Item Value Reference Range Interpretation Comments Ethanol Level <3.0 mg/dL N The pharmacolo gical (test code = response to blo od alcohol Ethanol Level) levels may va ry from individual to i ndividual. The fatal chivo ntration has been report ed to be >400 mg/dl. [id number] 15:11:36 Test Item Value Reference Range Interpretation [...] 0 g/dL 1-2 H Lipemia) HCG Ql [id number] 15:11:36 Test Item Value Reference Range Interpretation Comments HCG, Serum Qual (test code = HCG, Negative Negative Serum Qual) [id number] 15:11:36 Test Item Value Reference Range Interpretation [...] code = 0 g/dL 1-2 H Lipemia) [id number] 14:58:46 Test Item Value Reference Range Interpretation [...] = 0.00 x10 N NRBC Abs) Auto [id number] 14:58:46 Test Item Value Reference Range Interpretation Comments Neutro Auto (test code = Neutro 55.7 % 36.0-70.0 Auto) Lymph Auto (test code = Lymph Auto) 38.5 % 12.0-44.0 [place] Auto (test code = [place] Auto) 4.7 % 0.0-11.0 Eos, Auto (test code = Eos, Auto) 0.4 % 0.0-7.0 Basophil Auto (test code = Basophil 0.5 % 0.0-2.0 Auto) Neutro Absolute (test code = Neutro 4.6 x10 1.6-7.4 Absolute) Lymph Absolute (test code = Lymph 3.17 x10 .50-4.60 Absolute) [place] Absolute (test code = [place] .39 x10 .00-1.20 Absolute) Eos Absolute (test code = Eos 0.03 x10 0.00-0.74 Absolute) Baso Absolute (test code = Baso 0.04 x10 0.00-0.21 Absolute) IG [id number] 14:58:46 Test Item Value Reference Range Interpretation Comments IG (test code = IG) 0.2 % 0.0-5.0 IG Abs (test code = IG Abs) 0 x10 N RPR, [id number] 04:44:00 Test Item Value Reference Range Interpretation Comments RPR (test code = RPR) Non-Reactive Non-Reactive N Urinalysis [id number] 14:36:00 Test Item Value Reference Range Interpretation Comments Color (test code = COLOR) Yellow Yellow,Straw,Pl N yellow Clarity (test code = Clear Clear N CLAR) Specific [place] (test 1.012 1.001-1.035 N code = SPGR) [...] Bacteria (test code = Few /HPF BACT) [id number] 13:50:00 Test Item Value Reference Range Interpretation [...] = THC) Negative Negative N BHCG, Urine, [id number] 12:04:00 Test Item Value Reference Range Interpretation Comments Preg Qual [Ur] (test code = HUHCG) Negative Negative N Alcohol/Ethanol, [id number] 12:04:00 Test Item Value Reference Range Interpretation Comments Alcohol, Ethyl <0.01 g/dL 0.00-0.01 N Intoxicated 0.080 (test code = ETOH) g/dL or m ore Comprehensive Metabolic [id number] 12:04:00 Test Item Value Reference Range Interpretation [...] validated by th e MDRD study and shoul d be interpretedwith caution.eGFR Re sult Interpretation: eGFR > or = 60 is in t he Normal RangeeGF R < 60 may mean kidney diseaseeGFR < 1 5 may mean kidney failureRange s recommended by the National Kidney Foundation,http ://nkd ep.nih.gov CBC with [id number] 11:37:00 Test Item Value Reference Range Interpretation [...] code = ALYMPH) 2.3 K/cumm 0.5-4.6 N [place] Abs (test code = AMONO) 0.2 K/cumm 0.0-1.2 N Eos Abs (test code = AEOS) 0.05 K/cumm 0.00-0.74 N Baso Abs (test code = ABASO) 0.0 K/cumm 0.00-0.21 N
[2021-08-12] MEDS ORDERED: LORazepam 2 MG/ML VIAL ONE (22:55)
[2021-08-12 23:03] LABS: Absolute Lymphocytes (CBC) 4.9 K/uL (0.7-4.9); Hematocrit 36.7 % (36.0-45.0); Lymphocytes % 38.4 % (15.3-44.8); MPV 7.5 fL (7.6-11.3); RBC Red Blood Cell Count 4.67 M/uL (3.86-4.86)
--- NOTE | 2021-08-12 23:07 | RAD REPORT ---
EXAM DESCRIPTION: CT - Head Brain Wo Cont - 08/12/2021 10:59 pm CLINICAL HISTORY: Alteration of awareness/confusion COMPARISON: None TECHNIQUE: Computed axial tomography of the head was obtained. IV contrast was not requested. All CT scans are performed using dose optimization technique as appropriate and may include automated exposure control or mA/KV adjustment according to patient size. FINDINGS: An intracranial bleed is not seen . The ventricles are normal in caliber. No extra-axial fluid collection is noted. No significant hypodensity within the brain noted. . Small amount of fluid within the sphenoid sinus. Mastoids are clear IMPRESSION: No acute intracranial abnormality is seen. If patient's symptoms persist MRI of the bra in would be recommended. Small amount of fluid within the sphenoid sinus may indicate acute sinusitis
[2021-08-12 23:18] LABS: Potassium 3.7 mmol/L (3.5-5.1)
[2021-08-12] MEDS ORDERED: NA CHLORIDE 0.9% 1,000 ML ONE (23:32)
--- NOTE | 2021-08-13 00:27 | ER ---
Nurse's Notes [facility] Name: Bonnie Hilton Age: 31 yrs Sex: Female : 1990 Arrival Date: 08/12/2021 Time: 22:19 Bed 2 Private MD: Diagnosis: Generalized anxiety disorder;Acute sphenoidal sinusitis Presentation: 08/12 22:39 Chief complaint: Parent and/or Guardian states: "She has been acting increasingly tw5 confused and restless for the past two hours. She is having trouble sitting still, talking and walking.". Coronavirus screen: Vaccine status:. Ebola Screen: Patient negative for fever greater than or equal to 101.5 degrees Fahrenheit, and additional compatible Ebola Virus Disease symptoms Patient denies exposure to infectious person. Patient denies travel to an Ebola-affected area in the 21 days before illness onset. Initial Sepsis Screen: Does the patient meet any 2 criteria? RR > 20 per min. Altered Mental Status. HR > 90 bpm. Yes Does the patient have a suspected source of infection? No. Patient's initial sepsis screen is negative. Risk Assessment: Do you want to hurt yourself or someone else? Patient reports no desire to harm self or others. Onset of symptoms was August 12, 2021 at 08:40. 22:39 Acuity: ADELE 2 tw5 22:39 Method Of Arrival: Ambulatory tw5 Triage Assessment: 22:41 General: Appears obese, Behavior is anxious, restless. Pain: Denies pain. Neuro: Level tw5 of Consciousness is awake, alert, obeys commands, Oriented to person, place, time, situation. 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 Screenin:52 Abuse screen: Denies threats or abuse. Denies injuries from another. Nutritional kd3 screening: No deficits noted. Tuberculosis screening: No symptoms or risk factors identified. Fall Risk IV access (20 points). Assessment: 22:52 General: Appears uncomfortable, Behavior is anxious. Neuro:. Cardiovascular: Rhythm is kd3 sinus tachycardia. 23:30 Reassessment: Patient and/or family updated on plan of care and expected duration. Pain kd3 level reassessed. Patient is alert, oriented x 3, equal unlabored respirations, skin warm/dry/pink. Patient states feeling better. Patient states symptoms have improved. Vital Signs: 22:39 BP 125 / 112; Pulse 151; Resp 30; Temp 99.6(O); Pulse Ox 96% on R/A; Weight 89.81 kg; tw5 Height 4 ft. 9 in. (144.78 cm); Pain 0/10; 23:29 Pulse 123; kd3 22:39 Body Mass Index 42.85 (89.81 kg, 144.78 cm) tw5 ED Course: 22:19 Patient arrived in ED. bp1 22:28 Power Cowart DO is Attending Physician. ms3 22:33 Luna Thompson, CECILY is Primary Nurse. kd3 22:41 Triage completed. tw5 22:43 Arm band placed on. as6 22:43 Inserted saline lock: 20 gauge in right antecubital area, using aseptic technique. as6 Blood collected. 22:52 Patient has correct armband on for positive identification. Bed in low position. kd3 23:00 CT Head Brain wo Cont In Process Unspecified. EDMS 23:28 XRAY Chest (1 view) In Process Unspecified. EDMS 06 00:48 No provider procedures requiring assistance completed. IV discontinued, intact, as6 bleeding controlled, No redness/swelling at site. Pressure dressing applied. Administered Medications: 08/12 22:51 Drug: Ativan (LORazepam) 1 mg Route: IVP; Site: right antecubital; tw5 08/13 00:47 Follow up: Response: No adverse reaction as6 02 23:29 Drug: NS 0.9% 1000 ml Route: IV; Rate: 125 ml/hr; Site: right antecubital; kd3 08/13 00:47 Follow up: Response: No adverse reaction; IV Status: Order to discontinue infusion; IV as6 Intake: 300ml Medication: 08/12 22:52 VIS not applicable for this client. kd3 Intake: 08/13 00:47 IV: 300ml; Total: 300ml. as6 Outcome: 00:27 Discharge ordered by . ms3 00:48 Discharged to home ambulatory. as6 00:48 Condition: stable 00:48 Discharge instructions given to patient, Instructed on discharge instructions, follow up and referral plans. medication usage, Demonstrated understanding of instructions, follow-up care, medications, Prescriptions given X 1. 00:48 Patient left the ED. as6 Signatures: Dispatcher [employer] EDMS Power Cowart DO DO ms3 Racquel Decker Tiffany tw5 Vikas Tarango RN RN as6 Luna Thompson RN RN kd3
--- NOTE | 2021-08-13 00:28 | EDPHYS ---
Physician Documentation [facility] Name: Bonnie Hilton Age: 31 yrs Sex: Female : 1990 Arrival Date: 08/12/2021 Time: 22:19 Bed 2 Private MD: ED Physician Power Cowart HPI: 08/12 23:08 This 31 yrs old Female presents to ER via Ambulatory with complaints of Altered Mental ms3 Status, Trouble Walking. 23:08 The patient presents with confusion, trouble concentrating. Onset: The symptoms/episode ms3 began/occurred 3 hour(s) ago. Possible causes: History of Schizophrenia, currently off her medication. Associated signs and symptoms: Pertinent positives: shaking, Pertinent negatives: abdominal pain, chest pain, vomiting. Current symptoms: In the emergency department the patient's symptoms are unchanged from the initial presentation. Patient's baseline: Neuro: alert and fully oriented, Motor: no deficits, Ambulation: walks without assistance, Speech: normal. 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 ROS: 23:08 Constitutional: Negative for fever, and chills. Eyes: Negative for injury, pain, ms3 redness, and discharge, Neck: Negative for injury, pain, and swelling, Cardiovascular: Negative for chest pain, and palpitations. Respiratory: Negative for shortness of breath, cough, wheezing, and pleuritic chest pain, Abdomen/GI: Negative for abdominal pain, nausea, vomiting, diarrhea, and constipation, MS/Extremity: Negative for injury and deformity, Skin: Negative for injury, rash, and discoloration. 23:08 Neuro: Positive for Confusion. 23:08 All other systems are negative. Exam: 23:08 Constitutional: This is a well developed, well nourished patient who is awake, alert, ms3 and in no acute distress. Neck: Trachea midline, no cervical lymphadenopathy. Supple, full range of motion without nuchal rigidity, or vertebral point tenderness. No Meningismus. Chest/axilla: Normal chest wall appearance and motion. Nontender with no deformity. Cardiovascular: Regular rate and rhythm with a normal S1 and S2. No gallops, murmurs, or rubs. Normal PMI, no JVD. No pulse deficits. Respiratory: Lungs have equal breath sounds bilaterally, clear to auscultation and percussion. No rales, rhonchi or wheezes noted. No increased work of breathing, no retractions or nasal flaring. Abdomen/GI: Soft, non-tender, with normal bowel sounds. No distension or tympany. No guarding or rebound. No evidence of tenderness throughout. Skin: Warm, dry with normal turgor. Normal color with no rashes, no lesions, and no evidence of cellulitis. 23:08 Psych: Behavior/mood is cooperative, anxious, Affect is calm. 23:38 ECG was reviewed by the Attending Physician. ms3 Vital Signs: 22:39 BP 125 / 112; Pulse 151; Resp 30; Temp 99.6(O); Pulse Ox 96% on R/A; Weight 89.81 kg; tw5 Height 4 ft. 9 in. (144.78 cm); Pain 0/10; 23:29 Pulse 123; kd3 22:39 Body Mass Index 42.85 (89.81 kg, 144.78 cm) tw5 MDM: 22:44 Patient medically screened. ms3 23:12 Differential Diagnosis: electrolyte abnormality, Schizophrenia vs anxiety. ms3 08/13 00:28 Data reviewed: vital signs, nurses notes, lab test result(s), EKG, radiologic studies. ms3 Data interpreted: hall monitor: rate is 105 beats/min, rhythm is sinus tachycardia, Pulse oximetry: on room air is 96 %. Interpretation: normal. Counseling: I had a detailed discussion with the patient and/or guardian regarding: the historical points, exam findings, and any diagnostic results supporting the discharge/admit diagnosis, lab results, radiology results, the need for outpatient follow up, to return to the emergency department if symptoms worsen or persist or if there are any questions or concerns that arise at home. ED course: Discussed labs, CXR, CT, physical exam findings with patient. Patient to follow-up with PMD in 2 to 3 days. Patient understands and agrees with plan. All questions were answered. Return precautions discussed include worsening symptoms, or any other concerns. On reevaluation patient symptoms improved, patient is alert and oriented x4, no apparent distress, nontoxic, ambulatory in emergency department, tolerating p.o.. 08/12 22:44 Order name: Basic Metabolic Panel; Complete Time: 23:49 ms3 08/12 22:44 Order name: CBC with Diff; Complete Time: 23:49 ms3 08/12 22:44 Order name: XRAY Chest (1 view) ms3 08/12 22:44 Order name: CT Head Brain wo Cont; Complete Time: 23:49 ms3 08/12 22:44 Order name: EKG; Complete Time: 22:45 ms3 08/12 22:44 Order name: Cardiac monitoring; Complete Time: 22:45 ms3 08/12 22:44 Order name: EKG - Nurse/Tech; Complete Time: 22:50 ms3 08/12 22:44 Order name: IV Saline Lock; Complete Time: 22:45 ms3 08/12 22:44 Order name: Labs collected and sent; Complete Time: 22:51 ms3 08/12 22:44 Order name: O2 Per Protocol; Complete Time: 22:45 ms3 08/12 22:44 Order name: O2 Sat Monitoring; Complete Time: 22:45 ms3 EC/02 23:38 Rate is 109 beats/min. Rhythm is regular. QRS [place] is Normal. [place] interval is normal. ms3 QRS interval is normal. No ST changes noted. Clinical impression: Sinus tachycardia. Interpreted by me. Administered Medications: 22:51 Drug: Ativan (LORazepam) 1 mg Route: IVP; Site: right antecubital; tw5 08/13 00:47 Follow up: Response: No adverse reaction as6 08/12 23:29 Drug: NS 0.9% 1000 ml Route: IV; Rate: 125 ml/hr; Site: right antecubital; kd3 08/13 00:47 Follow up: Response: No adverse reaction; IV Status: Order to discontinue infusion; IV as6 Intake: 300ml Disposition Summary: 08/13/21 00:27 Discharge Ordered Location: Home ms3 Condition: Stable ms3 Diagnosis - Generalized anxiety disorder ms3 - Acute sphenoidal sinusitis ms3 Followup: ms3 - With: Private Physician - When: 2 - 3 days - Reason: Recheck today's complaints Discharge Instructions: - Discharge Summary Sheet ms3 - Panic Attack ms3 - Supporting Someone With Anxiety ms3 - Managing Anxiety, Adult ms3 Forms: - Medication Reconciliation Form ms3 - Thank You Letter ms3 - Antibiotic Education ms3 - Prescription Opioid Use ms3 Prescriptions: - Augmentin 875-125 mg Oral Tablet - take 1 tablet by ORAL route every 12 hours for 10 days; 20 tablet; Refills: 0, ms3 Product Selection Permitted Signatures: Dispatcher [employer] EDKS Power Cowart DO DO ms3 Estefania Burrell tw5 Luna Thompson RN RN kd3 Vikas Tarango RN as6
[2021-08-13 01:14] VITALS: BP 125/112; TEMP 99.6; O2SAT 96
--- NOTE | 2021-08-13 12:29 | RAD REPORT ---
EXAM DESCRIPTION: RAD - Chest Single View - 08/12/2021 11:27 pm CLINICAL HISTORY: 31-year-old female with confusion. TECHNIQUE: Single view, AP portable chest was obtained. COMPARISON: None. FINDINGS: Unremarkable cardiac and mediastinal silhouette. Heart size is normal. Low lung volumes otherwise grossly clear without focal opacity, pneumothorax or pleural effusions. The visualized bones are within normal limits. IMPRESSION: No acute cardiopulmonary abnormalities. Electronically signed by: Elba Alexis MD 08/12/2021 11:32 PM CDT Due to temporary technical issues with the PACS/Fluency reporting system, reports are being signed by the in house radiologists without review as a courtesy to insure prompt reporting. The interpreting radiologist is fully responsible for the content of the report.
--- NOTE | 2021-08-14 14:30 | EKG ---
Test Date: 2021-08-12 Test Time: 23:38:42 [employer] Program Chair: GARETH MEASUREMENT RESULTS: Intervals: Rate: 109 MA: 138 QRSD: 72 QT: 316 QTc: 425 [place]: P: 47 MA: 138 QRS: 48 T: 35 INTERPRETIVE STATEMENTS: Sinus tachycardia Otherwise normal ECG No previous ECG available for comparison Electronically Signed On 08-14-21 14:29:41 CDT by Claus Corado
== END 2021-08-13 00:48 | disposition home or self-care (01) ==
LOC: ER 22:16
DX: F41.1 Generalized anxiety disorder (principal); J01.30 Acute sphenoidal sinusitis, unspecified; F17.210 Nicotine dependence, cigarettes, uncomplicated
CPT/HCPCS: 96361; 93005; 85025; 80048; 36415; 70450; 71045; 96374; 99284; J7030

== ENCOUNTER 2021-09-16 17:26 | Emergency (ER) | payer OTHER ==
[2021-09-16 18:16] LABS: Absolute Lymphocytes (CBC) 3.8 K/uL (0.7-4.9); Hematocrit 34.9 % (36.0-45.0); Lymphocytes % 36.3 % (15.3-44.8); MCV 77.4 fL (80-100); MPV 7.1 fL (7.6-11.3); RBC Red Blood Cell Count 4.51 M/uL (3.86-4.86)
[2021-09-16] MEDS ORDERED: LORazepam 2 MG/ML VIAL ONE (18:21)
[2021-09-16] MEDS ORDERED: NA CHLORIDE 0.9% 1,000 ML ONE (18:21)
[2021-09-16 18:30] LABS: Potassium 3.7 mmol/L (3.5-5.1)
--- NOTE | 2021-09-16 19:00 | EDPHYS ---
Physician Documentation [facility] Name: Bonnie Hilton Age: 31 yrs Sex: Female : 1990 Arrival Date: 09/16/2021 Time: 17:27 Bed DIS3 Private MD: ED Physician Power Cowart HPI: 09/16 18:58 This 31 yrs old Female presents to ER via Ambulatory with complaints of Altered Mental ms3 Status. 18:58 The patient presents with Not talking and shaking. Onset: The symptoms/episode ms3 began/occurred 2 hour(s) ago. Possible causes: schizophrenia. Associated signs and symptoms: Pertinent positives: shaking. Current symptoms: In the emergency department the patient's symptoms are unchanged from the initial presentation. Patient's baseline: Neuro: alert and fully oriented, Motor: no deficits, Ambulation: walks without assistance, Speech: normal, The patient has a previous history of schizophrenia/ anxiety attacks. Historical: - Allergies: 17:41 No Known Allergies; ss - Home Meds: 17:41 None [Active]; ss - PMHx: 17:41 Schizophrenia; ss - PSHx: 17:41 None; ss - Immunization history:: Client reports receiving the 2nd dose of the Covid vaccine. - Social history:: Smoking status: Patient reports the use of cigarette tobacco products, smokes one-half pack cigarettes per day, Patient/guardian denies using street drugs. ROS: 18:58 Constitutional: Negative for fever, and chills. Neck: Negative for injury, pain, and ms3 swelling, Cardiovascular: Negative for chest pain, and palpitations. Respiratory: Negative for shortness of breath, cough, wheezing, and pleuritic chest pain, Abdomen/GI: Negative for abdominal pain, nausea, vomiting, diarrhea, and constipation, MS/Extremity: Negative for injury and deformity, Skin: Negative for injury, rash, and discoloration. 18:58 Psych: Positive for anxiety. 18:58 All other systems are negative. Exam: 18:58 Constitutional: This is a well developed, well nourished patient who is awake, alert, ms3 and in no acute distress. Head/Face: Normocephalic, atraumatic. Eyes: Pupils equal round and reactive to light, extra-ocular motions intact. Lids and lashes normal. Conjunctiva and sclera are non-icteric and not injected. Periorbital areas with no swelling, redness, or edema. Neck: Trachea midline, no cervical lymphadenopathy. Supple, full range of motion without nuchal rigidity, or vertebral point tenderness. No Meningismus. Chest/axilla: Normal chest wall appearance and motion. Nontender with no deformity. 18:58 Respiratory: Lungs have equal breath sounds bilaterally, clear to auscultation and percussion. No rales, rhonchi or wheezes noted. No increased work of breathing, no retractions or nasal flaring. Abdomen/GI: Soft, non-tender, with normal bowel sounds. No distension or tympany. No guarding or rebound. No evidence of tenderness throughout. Skin: Warm, dry with normal turgor. Normal color with no rashes, no lesions, and no evidence of cellulitis. MS/ Extremity: Pulses equal, no cyanosis. Neurovascular intact. Full, normal range of motion. 18:58 Cardiovascular: Rate: tachycardic, Rhythm: regular, Pulses: no pulse deficits are appreciated, Heart sounds: normal. 18:58 Neuro: Mentation: able to follow commands, Cranial nerves: grossly normal, Cerebellar function: is grossly normal, Motor: is normal, Sensation: is normal, Gait: is steady, at a normal pace, without difficulty. Vital Signs: 17:37 BP 120 / 104; Pulse 139; Resp 22; Temp 97.8(TE); Pulse Ox 99% on R/A; Weight 83.01 kg; ss Height 4 ft. 9 in. (144.78 cm); Pain 0/10; 19:16 Pulse 92; Resp 16; Pulse Ox 100% ; ss 17:37 Body Mass Index 39.60 (83.01 kg, 144.78 cm) ss 17:37 Pt is restless while obtaining VS ss MDM: 18:02 Patient medically screened. ms3 18:58 Differential Diagnosis: electrolyte abnormality, schizophrenia, anxiety. Data reviewed: ms3 vital signs, nurses notes, lab test result(s), and as a result, I will discharge patient. Counseling: I had a detailed discussion with the patient and/or guardian regarding: the historical points, exam findings, and any diagnostic results supporting the discharge/admit diagnosis, lab results, the need for outpatient follow up, to return to the emergency department if symptoms worsen or persist or if there are any questions or concerns that arise at home. ED course: Discussed labs, and PE findings with patient. Patient to follow up with PMD in 2-3 days. Patient understands/ agrees with plan. All questions answered. Return precautions discussed to include worsening symptoms, or any other concerns. On re-evaluation after 1 mg Ativan patient is improved, A/O x4, nad, non-toxic, ambulatory in ED, speaking full sentences.. 09/16 17:46 Order name: CBC with Diff; Complete Time: 18:58 ms3 09/16 17:46 Order name: BMP; Complete Time: 18:58 ms3 Administered Medications: 17:47 Not Given (Other Intervention Used): Ativan (LORazepam) 2 mg IVP once ss 18:18 Drug: Ativan (LORazepam) 1 mg Route: IVP; Site: right antecubital; ss 19:17 Follow up: Response: No adverse reaction; Anxiety decreased ss 18:19 Drug: NS 0.9% 1000 ml Route: IV; Rate: 1000 ml; Site: right antecubital; ss 19:17 Follow up: IV Status: Completed infusion; IV Intake: 1000ml ss Disposition Summary: 09/16/21 18:59 Discharge Ordered Location: Home ms3 Condition: Stable ms3 Diagnosis - Other specified anxiety disorders ms3 - Schizophrenia, unspecified ms3 Followup: ms3 - With: Juan Jose Paez MD - When: 2 - 3 days - Reason: Recheck today's complaints Discharge Instructions: - Discharge Summary Sheet ms3 - Schizophrenia ms3 - Supporting Someone With Schizophrenia ms3 - Supporting Someone With Anxiety ms3 - Managing Anxiety, Adult ms3 Forms: - Medication Reconciliation Form ms3 - Thank You Letter ms3 - Antibiotic Education ms3 - Prescription Opioid Use ms3 Signatures: Dispatcher [employer] Enriqueta Scott RN RN Power Sher DO DO ms3 Corrections: (The following items were deleted from the chart) 19:54 19:53 This 31 yrs old Female presents to ER via Ambulatory with complaints of Altered ms3 Mental Status. ms3
--- NOTE | 2021-09-16 19:00 | ER ---
Nurse's Notes [facility] Name: Bonnie Hilton Age: 31 yrs Sex: Female : 1990 Arrival Date: 09/16/2021 Time: 17:27 Bed DIS3 Private MD: Diagnosis: Other specified anxiety disorders;Schizophrenia, unspecified Presentation: 09/16 17:37 Chief complaint: Step mother states, "it's the same as last time. She keeps moving and ss she can't talk." States symptoms occurred approximately 2 hours ago. Coronavirus screen: Client denies travel out of the [place] in the last 14 days. Ebola Screen: Patient denies exposure to infectious person. Patient denies travel to an Ebola-affected area in the 21 days before illness onset. 17:37 Method Of Arrival: Ambulatory ss 17:37 An acute neurological deficit is present. Pre-hospital glucose is not applicable to ss this patient. Initial Sepsis Screen: Does the patient meet any 2 criteria? No. Patient's initial sepsis screen is negative. Does the patient have a suspected source of infection? No. Patient's initial sepsis screen is negative. Risk Assessment: Do you want to hurt yourself or someone else? Patient reports no desire to harm self or others. Onset of symptoms was September 16, 2021. 17:37 Acuity: ADELE 2 ss Historical: - Allergies: 17:41 No Known Allergies; ss - Home Meds: 17:41 None [Active]; ss - PMHx: 17:41 Schizophrenia; ss - PSHx: 17:41 None; ss - Immunization history:: Client reports receiving the 2nd dose of the Covid vaccine. - Social history:: Smoking status: Patient reports the use of cigarette tobacco products, smokes one-half pack cigarettes per day, Patient/guardian denies using street drugs. Screenin:16 Abuse screen: Denies threats or abuse. Denies injuries from another. Nutritional ss screening: No deficits noted. Tuberculosis screening: Never had TB. Fall Risk None identified. Assessment: 17:50 General: Appears distressed, uncomfortable, Behavior is anxious, restless. Pain: Denies ss pain. Neuro: [place] Agitation-Sedation Scale (RASS): +1 Restless. Cardiovascular: Capillary refill < 3 seconds is brisk in bilateral fingers. Respiratory: Airway is patent Respiratory effort is even, unlabored, Respiratory pattern is regular, symmetrical. EENT: Nares are clear. Derm: Skin is intact, is healthy with good turgor, Skin is dry, Skin is pink, warm \\T\\ dry. normal. Musculoskeletal: Circulation, motion, and sensation intact. Range of motion: intact in all extremities, Swelling absent. 19:16 Reassessment: Patient appears in no apparent distress at this time. Patient and/or ss family updated on plan of care and expected duration. Pain level reassessed. Pt is speaking and back to baseline according to patient and her step mother Patient denies pain at this time. Patient states feeling better. Patient states symptoms have improved. Vital Signs: 17:37 BP 120 / 104; Pulse 139; Resp 22; Temp 97.8(TE); Pulse Ox 99% on R/A; Weight 83.01 kg; ss Height 4 ft. 9 in. (144.78 cm); Pain 0/10; 19:16 Pulse 92; Resp 16; Pulse Ox 100% ; ss 17:37 Body Mass Index 39.60 (83.01 kg, 144.78 cm) ss 17:37 Pt is restless while obtaining VS ss ED Course: 17:27 Patient arrived in ED. rg4 17:38 Power Cowart DO is Attending Physician. ms3 17:41 Triage completed. ss 17:41 Arm band placed on right wrist. ss 17:50 Patient has correct armband on for positive identification. Bed in low position. ss 17:50 No provider procedures requiring assistance completed. IV discontinued, intact, ss bleeding controlled, No redness/swelling at site. Pressure dressing applied. 18:12 Inserted saline lock: 22 gauge in right antecubital area, using aseptic technique. ss Blood collected. 18:59 Juan Jose Paez MD is Referral Physician. ms3 19:16 Enriqueta Pollock RN is Primary Nurse. ss Administered Medications: 17:47 Not Given (Other Intervention Used): Ativan (LORazepam) 2 mg IVP once ss 18:18 Drug: Ativan (LORazepam) 1 mg Route: IVP; Site: right antecubital; ss 19:17 Follow up: Response: No adverse reaction; Anxiety decreased ss 18:19 Drug: NS 0.9% 1000 ml Route: IV; Rate: 1000 ml; Site: right antecubital; ss 19:17 Follow up: IV Status: Completed infusion; IV Intake: 1000ml ss Medication: 19:16 VIS not applicable for this client. ss Intake: 19:17 IV: 1000ml; Total: 1000ml. ss Outcome: 18:59 Discharge ordered by . ms3 19:17 Discharged to home ambulatory, with family. ss 19:17 Condition: improved 19:17 Discharge instructions given to patient, family, Instructed on discharge instructions, follow up and referral plans. Demonstrated understanding of instructions, follow-up care. 19:18 Patient left the ED. ss Signatures: Enriqueta Pollock RN RN Merced Oropeza rg4 Power Cowart DO DO ms3 Corrections: (The following items were deleted from the chart) 17:41 17:37 Chief complaint: Step mother states, "it's the same as last time. She keeps ss moving and she can't talk." ss
[2021-09-16 19:43] VITALS: BP 120/104; TEMP 97.8
[2021-09-16 19:45] VITALS: O2SAT 100
== END 2021-09-16 19:18 | disposition home or self-care (01) ==
LOC: ER 17:26
DX: F41.8 Other specified anxiety disorders (principal); F20.9 Schizophrenia, unspecified; F17.210 Nicotine dependence, cigarettes, uncomplicated
CPT/HCPCS: 85025; 80048; 36415; J7030